=== PATIENT | male | born 1955 | race Caucasian/White ===

== ENCOUNTER 2021-03-20 11:16 | Emergency (ER) | payer OTHER ==
[2021-03-20] MEDS ORDERED: NAPROXEN500 MG PO (12:17)
== END 2021-03-20 12:32 | disposition home or self-care (01) ==
LOC: FER 11:16
DX: S83.92XA Sprain of unspecified site of left knee, initial encounter (principal); W01.0XXA Fall on same level from slipping, tripping and stumbling without subsequent striking against object, initial encounter; Y93.53 Activity, golf; Y92.830 Public park as the place of occurrence of the external cause
CPT/HCPCS: 73564

== ENCOUNTER → 2021-06-24 | Day surgery (SDC) | payer OTHER ==
[~2021-06-24] VITALS: Ht 182.9 cm; Wt 88.5 kg
[~2021-06-24] MED LIST: COQ1050 MG PO; MULTI PRO CAPS1 EACH PO; NAPROXEN500 MG PO; SAW PALMETTO160 MG PO; [UNRECOGNIZED DRUG - OTHER] PO
[2021-06-24 06:39] LABS: HCT 42.8 % (42.0-52.0); HGB 14.6 g/dl (13.2-18.0); MCH 28.4 pg (25.0-31.0); MCHC 34.1 g/dL (32.0-36.0); MCV 83.3 fL (78.0-100.0); MPV 8.6 fL (6.0-9.5); RBC 5.14 M/uL (4.70-6.00); RDW 13.2 % (11.5-14.0); WBC 5.2 K/uL (4.0-10.5)
[2021-06-24 07:06] LABS: BILIRUBIN - TOTAL 0.8 mg/dL (0.2-1.0); BUN/CREAT RATIO (CALC) 26.5 RATIO; CREATININE 0.68 mg/dL (0.67-1.17); POTASSIUM 4.2 mmol/L (3.5-5.1)
== END | disposition home or self-care (01) ==
LOC: FAS 05:59
PROVIDERS: Orthopaedic Surgery
DX: S83.232A Complex tear of medial meniscus, current injury, left knee, initial encounter (principal); S83.282A Other tear of lateral meniscus, current injury, left knee, initial encounter; M17.12 Unilateral primary osteoarthritis, left knee; S83.201A Bucket-handle tear of unspecified meniscus, current injury, left knee, initial encounter; M23.92 Unspecified internal derangement of left knee
CPT/HCPCS: 36415; 71045; 80053; 93005; J1100; J1885; J2250; J2405; J2704; J3010; J7120

== ENCOUNTER 2021-08-11 07:18 | Day surgery (SDC) | payer OTHER ==
[~2021-08-11] VITALS: Ht 183 cm; Wt 88.0 kg
[~2021-08-11 07:18] MED LIST changes: +ASCORBIC ACID500 MG PO; +DOXYCYCLINE HY100 M2 PO; +HAIR SKIN NAIL1 EACH PO; +LORATADINE10 M1 PO; +MAG-OXIDE 400M400 MG PO; +MOTRIN600 MG PO; +NORCO 5/3251 EACH PO; +TRAMADOL HCL50 MG PO
--- NOTE | 2021-08-11 14:00 | NUR ---
PT TO D/C HOME WITH SPOUSE. PT. REQUESTED BRIAN NARANJO. FIRST APPT. IS Tuesday08/13/21 @ 9:00 A.MKarley PATE'S TO DELIVER A ROLLING WALKER UPON DISCHARGE.
[2021-08-12 06:36] LABS: BASOPHIL 0.1 % (0-2); EOSINOPHIL 0 % (0-7); HCT 32.2 % (42.0-52.0); HGB 10.6 g/dl (13.2-18.0); LYMPHOCYTE 10.8 % (15-48); MCHC 32.9 g/dL (32.0-36.0); MCV 82.1 fL (78.0-100.0); MONOCYTE 9.3 % (0-12); MPV 8.3 fL (6.0-9.5); NEUTROPHIL 79.4 % (41-80); NRBC 0; PLT 366 K/uL (150-400); RBC 3.92 M/uL (4.70-6.00); RDW 12.5 % (11.5-14.0)
[2021-08-12 06:52] LABS: BUN/CREAT RATIO (CALC) 21.1 RATIO; CREATININE 0.76 mg/dL (0.67-1.17); POTASSIUM 4.8 mmol/L (3.5-5.1)
[2021-08-12] MEDS ORDERED: CHILDREN'S ASPI81 MG PO (08:44)
[2021-08-12] MEDS ORDERED: FEOSOL325 MG PO (08:44)
== END 2021-08-12 09:48 | disposition home or self-care (01) ==
LOC: FMS 07:18 → FAS 07:18 → FMS 09:58 → FAS 10:30
PROVIDERS: Orthopaedic Surgery
DX: M17.12 Unilateral primary osteoarthritis, left knee (principal); S83.207A Unspecified tear of unspecified meniscus, current injury, left knee, initial encounter; S83.512A Sprain of anterior cruciate ligament of left knee, initial encounter; J44.9 Chronic obstructive pulmonary disease, unspecified; E78.5 Hyperlipidemia, unspecified
CPT/HCPCS: 36415; 73560; 80048; 85025; 86850; 86900; 86901; 94010; 94760; 94762; 97110; 97162; 97166; 97530-GP; 97535; C1713; C1776; J0171; J0697; J1100; J1170; J1885; J2001; J2250; J2270; J2405; J2704; J2795; J3010; J7120